=== PATIENT | female | born 1940 | race Caucasian/White ===

== ENCOUNTER 2017-07-12 09:15 | Inpatient (IN) | payer OTHER ==
[~2017-07-12] VITALS: Ht 152.4 cm; Wt 90.7 kg
[2017-07-12] MEDS ORDERED: GABAPENTIN600 MG PO (12:00)
[2017-07-12] MEDS ORDERED: NORVASC2.5 M1 PO (12:00)
[2017-07-12] MEDS ORDERED: ZETIA10 MG PO (12:00)
[2017-07-12] MEDS ORDERED: CRESTOR10 MG PO (12:01)
[2017-07-19] MEDS ORDERED: GABAPENTIN800 MG PO (09:22)
[2017-07-19] MEDS ORDERED: CIPROFLOXACIN750 MG PO ×2 (09:22→09:25)
[2017-07-19] MEDS ORDERED: DOCUSATE SODIU100 MG PO (09:22)
[2017-07-19] MEDS ORDERED: CLONAZEPAM1 MG PO (09:23)
[2017-07-19] MEDS ORDERED: PERCOCET 5-3251 EACH PO (09:23)
== END 2017-07-19 15:40 | disposition home or self-care (01) | DRG 454 ==
LOC: PED 07-18 05:38 → O/R 07-18 05:38 → SURH 07-18 09:15 → PED 07-18 16:56 → SURH 07-18 18:15 → PED 07-19 15:40 → SURH 07-21 09:15
PROVIDERS: Orthopaedic Surgery Orthopaedic Surgery of the Spine
PROC: 0SG0071 Fusion of Lumbar Vertebral Joint with Autologous Tissue Substitute, Posterior Approach, Posterior Column, Open Approach (ICD-10-PCS; 2017-07-18)
PROC: 0ST20ZZ Resection of Lumbar Vertebral Disc, Open Approach (ICD-10-PCS; 2017-07-18)
PROC: 0SG00AJ Fusion of Lumbar Vertebral Joint with Interbody Fusion Device, Posterior Approach, Anterior Column, Open Approach (ICD-10-PCS; 2017-07-18)
PROC: 07DS3ZZ Extraction of Vertebral Bone Marrow, Percutaneous Approach (ICD-10-PCS; 2017-07-18)
PROC: 0SG00A0 Fusion of Lumbar Vertebral Joint with Interbody Fusion Device, Anterior Approach, Anterior Column, Open Approach (ICD-10-PCS; principal; 2017-07-18 18:15)
DX: M48.061 Spinal stenosis, lumbar region without neurogenic claudication (principal); M51.06 Intervertebral disc disorders with myelopathy, lumbar region; M43.16 Spondylolisthesis, lumbar region; I10 Essential (primary) hypertension